=== PATIENT | female | born 2000 | race Caucasian/White ===

== ENCOUNTER → 2025-04-08 | Outpatient (CLI) | payer OTHER ==
[~2025-04-08] MED LIST: ALBU8.5H INH; ATOR1TAB21 PO; CYCL5TAB4 PO; FLUO40CA PO; GABA-1171 PO; GLYC1TAB18 PO; HYDR50TA70 PO; LEVOTAB10 PO; METO1TAB32 PO; OXYC1TAB23; PANT20TA6 PO; PROC10TA5 PO; PROP10TA56 PO; QUET50TA4 PO; TRAZ-252 PO
== END ==
LOC: M RAD 09:57
PROVIDERS: ATTEND Physician Assistant Medical
DX: M25.561 Pain in right knee (principal); G89.29 Other chronic pain

== ENCOUNTER 2025-04-17 08:36 | Day surgery (SDC) | payer OTHER ==
[~2025-04-17] VITALS: Ht 149.9 cm; Wt 69.9 kg
[~2025-04-17 08:36] MED LIST changes: +LIDOCAINE 2% 100 MG/5 ML SDV (FOR ANES.) As Ordered ONE; +ONDANSETRON 4MG 2ML VIAL As Ordered ONE; +ROCURONIUM BROMIDE 50MG/5ML VIAL As Ordered ONE; +SUGAMMADEX SODIUM 500 MG/5 ML VIAL As Ordered ONE; +dexAMETHasone 4 MG/ML 1 ML VIAL As Ordered ONE
[2025-04-17] MEDS ORDERED: ACETAMINOPHEN 1000MG/100ML IV BAG As Ordered ONE (09:07)
[2025-04-17] MEDS ORDERED: MIDAZOLAM INJ 2 MG/2 ML VIAL As Ordered ONE (09:16)
[2025-04-17] MEDS ORDERED: SCOPOLAMINE 1MG TRANSDERMAL PATCH TOP ONE (09:30)
[2025-04-17] MEDS: OXYMETAZOLINE 0.05% NASAL SPRAY As Ordered ONE (10:22)
[2025-04-17] MEDS: dexAMETHasone 4 MG/ML 1 ML VIAL IV ONE (10:25)
[2025-04-17] MEDS: AMPICILLIN SOD/SULBACTAM SOD 3 GM in D5W MINI-BAG 100 ML IV ONE (10:39)
[2025-04-17] MEDS: CHLORHEXIDINE GLUCONATE 0.12% 15 ML UDC As Ordered ONE (10:51)
[2025-04-17] MEDS ORDERED: LR 1,000 ML IV SCH (11:25)
[2025-04-17] MEDS: ONDANSETRON 4MG 2ML VIAL IV PRN (11:43)
[2025-04-17] MEDS: HYDROMORPHONE HCL 0.5 MG/0.5 ML SYRINGE IV PRN (11:55)
[2025-04-17 12:30] VITALS: BP 100/58; TEMP 97.9; O2SAT 96
== END 2025-04-17 13:00 | disposition home or self-care (01) ==
LOC: M SDC 08:36
PROVIDERS: ATTEND Dentist
DX: K02.9 Dental caries, unspecified (principal); K21.9 Gastro-esophageal reflux disease without esophagitis; K76.0 Fatty (change of) liver, not elsewhere classified; Q79.60 Ehlers-Danlos syndrome, unspecified; G90.A Postural orthostatic tachycardia syndrome [POTS]; E78.00 Pure hypercholesterolemia, unspecified; R61 Generalized hyperhidrosis; M54.9 Dorsalgia, unspecified; F41.9 Anxiety disorder, unspecified; F32.A Depression, unspecified; G43.909 Migraine, unspecified, not intractable, without status migrainosus; F43.10 Post-traumatic stress disorder, unspecified; J45.909 Unspecified asthma, uncomplicated; Z87.440 Personal history of urinary (tract) infections; Z79.899 Other long term (current) drug therapy
CPT/HCPCS: 81025; 88300; D7210; J0131; J0295; J0666; J1100; J1171; J2250; J2405; J3010

== ENCOUNTER 2025-07-06 08:55 | Day surgery (SDC) | payer OTHER ==
[~2025-07-06] VITALS: Ht 149.9 cm; Wt 68.0 kg
[~2025-07-06 08:55] MED LIST changes: +KETOROLAC 30 MG/ML 1 ML VIAL As Ordered ONE; +MIDAZOLAM INJ 2 MG/2 ML VIAL As Ordered ONE; +MIRA3350 PO; -ROCURONIUM BROMIDE 50MG/5ML VIAL As Ordered ONE; -SUGAMMADEX SODIUM 500 MG/5 ML VIAL As Ordered ONE
[2025-07-06] MEDS ORDERED: LR 1,000 ML IV SCH (10:20)
[2025-07-06] MEDS ORDERED: ROCURONIUM BROMIDE 50MG/5ML VIAL As Ordered ONE (10:30)
[2025-07-06] MEDS ORDERED: ACETAMINOPHEN 1000MG/100ML IV BAG As Ordered ONE (10:44)
[2025-07-06] MEDS ORDERED: SUGAMMADEX SODIUM 500 MG/5 ML VIAL As Ordered ONE (10:47)
[2025-07-06] MEDS: FAMOTIDINE 20 MG/2 ML VIAL As Ordered ONE (11:02)
[2025-07-06] MEDS ORDERED: MORPHINE 4 MG/ML 1 ML VIAL IV PRN (11:15)
[2025-07-06] MEDS ORDERED: MEPERIDINE 25 MG/ML 1 ML VIAL As Ordered ONE (11:35)
[2025-07-06] MEDS: ONDANSETRON 4MG 2ML VIAL IV PRN (11:55)
[2025-07-06 12:46] VITALS: BP 112/71; TEMP 96.9; O2SAT 95
[2025-07-06] MEDS ORDERED: IBUPROFEN 800 MG TAB As Ordered ONE (13:21)
[2025-07-06] MEDS: IBUPROFEN 600 MG TAB PO ONE (13:25)
== END 2025-07-06 13:20 | disposition home or self-care (01) ==
LOC: M SDC 08:55
PROVIDERS: ATTEND Orthopaedic Surgery Hand Surgery
DX: G56.01 Carpal tunnel syndrome, right upper limb (principal); Z79.899 Other long term (current) drug therapy
CPT/HCPCS: 29848; 81025; J0131; J0665; J1100; J1308; J1885; J2250; J2405; J3010

== ENCOUNTER → 2025-07-23 | Outpatient (CLI) | payer OTHER ==
[~2025-07-23] MED LIST changes: -KETOROLAC 30 MG/ML 1 ML VIAL As Ordered ONE; -LIDOCAINE 2% 100 MG/5 ML SDV (FOR ANES.) As Ordered ONE; -MIDAZOLAM INJ 2 MG/2 ML VIAL As Ordered ONE; -ONDANSETRON 4MG 2ML VIAL As Ordered ONE; -dexAMETHasone 4 MG/ML 1 ML VIAL As Ordered ONE
== END ==
LOC: M RAD 08:32
PROVIDERS: ATTEND Family Medicine
DX: M22.2X1 Patellofemoral disorders, right knee (principal); M25.461 Effusion, right knee; M71.21 Synovial cyst of popliteal space [Baker], right knee

== ENCOUNTER → 2025-09-01 | Outpatient (REF) | payer OTHER, MEDICAID ==
[2025-09-01 17:30] LABS: BASO # 0.1 10^3/uL (0.0-0.2); BASO % 0.6 % (0.0-1.0); EOS # 0.4 10^3/uL (0.0-0.5); EOS % 3.2 % (0.0-3.0); LYMPH # 2.6 10^3/uL (1.5-5.0); LYMPH % 23.2 % (24.0-44.0); MONO # 0.6 10^3/uL (0.0-0.8); MONO % 5.6 % (2.0-8.0); NEUTROPHILS # 7.4 10^3/uL (1.5-8.5); NEUTROPHILS % 66.9 % (36.0-66.0); PLATELET COUNT, AUTOMATED 373 10^3/uL (150-450)
[2025-09-01 17:38] LABS: ALT/SGPT 11 U/L (7.0-40); AST/SGOT 15 U/L (<34); CALCIUM LEVEL 9.3 MG/DL (8.5-10.1); CARBON DIOXIDE LEVEL 30 MMOL/L (20-31); CHLORIDE LEVEL 104 MMOL/L (98-107); CHOLESTEROL LEVEL 291 MG/DL (<200); CHOLESTEROL RISK RATIO 7.67 (<5); CREATININE FOR GFR 0.69 MG/DL (0.55-1.30); GLOMERULAR FILTRATION RATE > 90.0 (>60); LDL CHOLESTEROL 219.1 MG/DL (<100); NON-HDL-C 253.1 MG/DL; POTASSIUM SERUM 4.9 MMOL/L (3.5-5.1); SODIUM LEVEL 138 MMOL/L (136-145); TRIGLYCERIDES LEVEL 170 MG/DL (<150)
[2025-09-01 17:40] LABS: TOTAL 25(OH) VITAMIN D 28.1 NG/ML (20.0-100.0)
[2025-09-01 17:47] LABS: ESTIMATED AVERAGE GLUCOSE 97.0 MG/DL (60-110)
[2025-09-01 18:11] LABS: HIV 1&2 SCREEN NEGATIVE (NEGATIVE)
[2025-09-01 18:18] LABS: HEPATITIS C VIRUS ABY INDEX < 0.02 INDEX (<0.8)
== END ==
LOC: M LAB REF 16:32
PROVIDERS: ATTEND Nurse Practitioner Family
DX: E66.811 Obesity, class 1 (principal); E56.9 Vitamin deficiency, unspecified; Z11.9 Encounter for screening for infectious and parasitic diseases, unspecified; R53.83 Other fatigue